=== PATIENT | male | born 1995 | race Caucasian/White ===

== ENCOUNTER 2018-12-13 20:34 | Emergency (ER) | payer SELFPAY ==
[2018-12-14] MEDS ORDERED: HYDROCODONE/ACETAMINOPHEN 5-325 MG TABLET PO ONE (00:22)
[2018-12-14] MEDS ORDERED: SULFAMETHOXAZOLE/TRIMETHOPRIM 800-160 MG TABLET PO ONE (00:22)
--- NOTE | 2018-12-14 00:26 | ER Document Report ---
HPI - HPI Patient complains to provider of: abscess Time Seen by Provider: 12/14/18 00:21 Onset: Other - 2 days Onset/Duration: Worse Quality of pain: Achy Pain Level: 4 Context: Patient complains of abscess to right buttock for the past 2 days. Patient reports nausea. Patient denies any fever. Patient states he had similar lesions in the past that he was able to pop and drain and they would go away. Patient states that the swelling is more painful and not resolving. Associated Symptoms: Other - Buttock pain. denies: Fever Exacerbated by: Movement Relieved by: Denies Similar symptoms previously: Yes Recently seen / treated by doctor: No - ROS ROS below otherwise negative: Yes Systems Reviewed and Negative: Yes All other systems reviewed and negative - CONSTITUTIONAL Constitutional: DENIES: Fever - GASTROINTESTINAL Gastrointestinal: REPORTS: Nausea. 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 IN LAST 30 DAYS: No - HEENT HEENT: Atraumatic, Normocephalic - NECK Neck: Normal Inspection, Supple - RESPIRATORY Respiratory: Breath Sounds Normal, No Respiratory Distress - CARDIOVASCULAR Cardiovascular: Regular Rate, Regular Rhythm, No Murmur - MUSCULOSKELETAL/EXTREMETIES Musculoskeletal/Extremeties: MAEW - NEURO Level of Consciousness: Awake, Alert, Appropriate Motor/Sensory: No Motor Deficit - DERM Integumentary: Warm, Dry, Abscess - Patient with erythematous tender indurated area to right buttock that measures 3 cm diameter. Course - Re-evaluation Re-evalutation: 12/14/18 00:43 Incision made during I&D procedure for evaluation of possible deep-seated infection. Only bloody drainage noted. Patient tolerated procedure well. Patient encouraged to apply warm packs frequently as well as take antibiotics as prescribed. Discussed worsening symptoms of patient to return medially for. - Vital Signs Vital signs: Temp Pulse Resp BP Pulse Ox 98.5 F 115 H 16 198/96 H 100 12/13/18 21:03 12/14/18 00:12 12/14/18 00:12 12/14/18 00:12 12/14/18 00:12 Procedures - Incision and Drainage Right Buttock Type: Simple Anesthetic type: 1% Lidocaine Blade size: 11 I&D procedure: Betadine prep applied Incision Method: Incision made by scalpel Amount/type of drainage: small amount of bloody drainage Adult Front & Back picture: 1 - Erythematous indurated area Discharge - Discharge Clinical Impression: Abscess, Encounter for incision and drainage procedure Condition: Stable Disposition: HOME, SELF-CARE Instructions: Abscess ([facility]), Oral Narcotic Medication ([facility]), Post Incision and Drainage, Trimethoprim-Sulfa ([facility]) Additional Instructions: Return immediately for any new or worsening symptoms Followup with your primary care provider, call tomorrow to make a followup appointment Prescriptions: Cephalexin Monohydrate [Keflex 500 mg Capsule] 500 mg PO Q6H 5 Days capsule Hydrocodone/Acetaminophen [Grahn 5-325 mg Tablet] 1 tab PO Q6 PRN #8 tablet PRN Reason: Sulfamethoxazole/Trimethoprim [Bactrim Ds Tablet] 1 each PO BID #20 tablet Referrals: MARCUS CLEMENTS MD [Primary Care Provider] - Follow up as needed
[2018-12-14] MEDS ORDERED: CEPHALEXIN 500 MG CAPSULE PO ONE (00:44)
[2018-12-14 01:13] VITALS: BP 144/95
== END 2018-12-14 01:18 | disposition home or self-care (01) ==
LOC: ER 20:34
DX: L02.31 Cutaneous abscess of buttock (principal); R11.0 Nausea; F17.200 Nicotine dependence, unspecified, uncomplicated
CPT/HCPCS: 99281